=== PATIENT | female | born 1970 | race Caucasian/White ===

== ENCOUNTER 2019-09-21 20:00 | Outpatient (CLI) | payer BC, SELFPAY | END 2019-09-21 20:01 | disposition home or self-care (01) | LOC: SLEEP 09-22 10:31 | PROVIDERS: Family Provider Family Medicine; PCP Family Medicine; Visit Provider Family Medicine | DX: G47.33 Obstructive sleep apnea (adult) (pediatric) (principal) | CPT/HCPCS: 95810; 95811 ==

== ENCOUNTER 2019-12-16 08:47 | Outpatient (CLI) | payer BC, SELFPAY ==
--- NOTE | 2019-12-16 09:09 | MM_ITS ---
WS: [id number] DIAGNOSTIC BILATERAL DIGITAL MAMMOGRAM WITH CAD RIGHT breast ultrasound, limited HISTORY: RIGHT BREAST LUMP 5OCLOCK COMPARISON: 06/26/2017 and 12/26/2013 TECHNIQUE: Bilateral craniocaudad, mediolateral oblique, and mediolateral views are submitted. Spot c ompression RIGHT CC. Computer aided detection utilized. Breast composition: There are scattered areas of fibroglandular density. Stable lymph node in the upp er outer quadrant of the RIGHT breast. Palpable marker is placed near the 6:00 axis of the RIGHT [address] with no underlying abnormality. Both breasts are normal with no suspicious calcifications or mass. RIGHT breast ultrasound. No suspicious mass or shadowing at the site of the palpable abnormality, 5-6 o'clock. Benign lymph no de is again identified at 11:00. MM/[place] [id number] IMPRESSION: BI-RADS: 2-Benign FOLLOW UP: 1 Year Follow-up
--- NOTE | 2019-12-16 09:12 | US_ITS ---
WS: [id number] DIAGNOSTIC BILATERAL DIGITAL MAMMOGRAM WITH CAD RIGHT breast ultrasound, limited HISTORY: RIGHT BREAST LUMP 5OCLOCK COMPARISON: 06/26/2017 and 12/26/2013 TECHNIQUE: Bilateral craniocaudad, mediolateral oblique, and mediolateral views are submitted. Spot c ompression RIGHT CC. Computer aided detection utilized. Breast composition: There are scattered areas of fibroglandular density. Stable lymph node in the upp er outer quadrant of the RIGHT breast. Palpable marker is placed near the 6:00 axis of the RIGHT [address] with no underlying abnormality. Both breasts are normal with no suspicious calcifications or mass. RIGHT breast ultrasound. No suspicious mass or shadowing at the site of the palpable abnormality, 5-6 o'clock. Benign lymph no de is again identified at 11:00. US/US breast RT limited* [id number] IMPRESSION: BI-RADS: 2-Benign FOLLOW UP: 1 Year Follow-up
== END 2019-12-16 08:48 | disposition home or self-care (01) ==
LOC: RADSHAW 08:52
PROVIDERS: PCP Family Medicine; Visit Provider Physician Assistant
DX: N63.14 Unspecified lump in the right breast, lower inner quadrant (principal)
CPT/HCPCS: 76642; 77066

== ENCOUNTER 2020-02-20 13:37 | Outpatient (CLI) | payer BC, SELFPAY ==
--- NOTE | 2020-02-20 13:30 | USCV_ITS ---
Sima Crandall Age: 50 Gender: F : 1970 Exam Date: 02/20/2020 14:12 Ordering Phys: Roberto Honeycutt MD Technologist: Jenae See Exam Location: [facility] – [place] Indication: SOB BP: / HR: 95 Rhythm: Sinus Technical Quality: TDS MEASUREMENTS (Male / Female) Normal Values 2D ECHO LV Diastolic Diameter PLAX 3.2 cm 4.2 - 5.9 / 3.9 - 5.3 cm LV Systolic Diameter PLAX 2.4 cm IVS Diastolic Thickness 0.9 cm 0.6 - 1.0 / 0.6 - 0.9 cm IVS Systolic Thickness 1.3 cm LVPW Diastolic Thickness 1.4 cm 0.6 - 1.0 / 0.6 - 0.9 cm LVPW Systolic Thickness 1.5 cm LVOT Diameter 2.1 cm LV Ejection Fraction 2D Teich 50.7 % LV Ejection Fraction MOD 2C 32.0 % LV Ejection Fraction 2C AL 36.4 % LA Diameter 4.0 cm LA Width 2.4 cm LA Height 3.6 cm RA Width 2.5 cm RA Height 3.9 cm Aorta at Sinotubular Diameter 2.5 cm M-MODE LV Diastolic Diameter MM 3.6 cm 4.2 - 5.9 / 3.9 - 5.3 cm LV Systolic Diameter MM 2.1 cm LV Ejection Fraction MM Teich 75.3 % IVS Diastolic Thickness MM 1.0 cm 0.6 - 1.0 / 0.6 - 0.9 cm IVS Systolic Thickness MM 1.3 cm LVPW Diastolic Thickness MM 1.6 cm 0.6 - 1.0 / 0.6 - 0.9 cm LVPW Systolic Thickness MM 1.7 cm RV Diastolic Diameter MM 1.4 cm Aortic Annulus Diameter 2.9 cm LA Ao Ratio MM 0.8 MV E Point Septal Separation 0.8 cm DOPPLER AV Peak Velocity 187.0 cm/s LVOT Peak Velocity 120.0 cm/s AV Area Cont Eq vti 2.8 cm squared AV Area Cont Eq pk 2.1 cm squared MV Area PHT 4.2 cm squared Mitral E to A Ratio 1.1 MV E' Velocity 10.0 cm/s Mitral E to MV E' Ratio 11.7 Mitral E to LV E' Lateral Ratio 11.9 Mitral E to LV E' Septal Ratio 11.4 TR Peak Velocity 221.7 cm/s TR Peak Gradient 19.7 mmHg TR Mean Velocity 170.2 cm/s TR Mean Gradient 12.8 mmHg TR Velocity Time Integral 61.7 cm TV Peak E Velocity 49.0 cm/s Right Atrial Pressure 3.0 mmHg Pulmonary Artery Systolic Pressu 22.7 mmHg PV Peak Velocity 52.0 cm/s RV Acceleration Time 0.1 s RV Ejection Time 0.3 s RV AcT/ET 0.4 FINDINGS Left Ventricle Normal left ventricular cavity size. Normal left ventricular systolic function. No regional wall motion abnormalities. Left ventricular ejection fraction is estimated at 60 %. Grade I/IV diastolic dysfunction (abnormal relaxation filling pattern), normal to mildly elevated filling pressures. Right Ventricle The right ventricle is normal in size and function. Right Atrium The right atrium is normal in size. Left Atrium The left atrium is normal in size. Mitral Valve Mildly thickened mitral valve. No mitral valve stenosis. Trace mitral valve regurgitation. Aortic Valve Aortic valve sclerosis without stenosis or regurgitation. Tricuspid Valve Structurally normal tricuspid valve without significant stenosis or regurgitation. Pulmonary artery systolic pressure is normal. Pulmonic Valve Structurally normal pulmonic valve without significant stenosis. There is no pulmonic regurgitation. Pericardium Normal pericardium without effusion. Aorta Normal ascending aorta dimension. CONCLUSIONS 1-Normal left ventricular cavity size. Normal left ventricular systolic function. No regional wall motion abnormalities. Left ventricular ejection fraction is estimated at 60 %. Grade I/IV diastolic dysfunction (abnormal relaxation filling pattern), normal to mildly elevated filling pressures. 2-Aortic valve sclerosis without stenosis or regurgitation. 3-Mildly thickened mitral valve. No mitral valve stenosis. Trace mitral valve regurgitation. 4-There is no pericardial effusion. 5-Pulmonary artery systolic pressure is within normal limits. 6-Right atrial pressure is around 5 mm of mercury. 7-There are no prior echocardiogram studies to compare. Harika Linares MD (Electronically Signed) Final Date: 20 February 2020 23:33 S
== END 2020-02-20 13:38 | disposition home or self-care (01) ==
LOC: RAD 13:49
PROVIDERS: PCP Family Medicine; Visit Provider Internal Medicine Critical Care Medicine
DX: R06.02 Shortness of breath (principal); I08.0 Rheumatic disorders of both mitral and aortic valves
CPT/HCPCS: 93306

== ENCOUNTER 2020-04-18 13:08 | Outpatient (CLI) | payer BC, SELFPAY ==
--- NOTE | 2020-04-18 13:30 | CT_ITS ---
WS: [id number] CT CHEST TECHNIQUE: Noncontrast CT of the chest with coronal and sagittal reformatted images. CLINICAL INFORMATION: Shortness of breath COMPARISON: None. DLP: 973.[address] scans at [facility] use at least one of these dose optimization techniques: automat ed exposure control; mA and/or kV adjustment per patient size (includes targeted exams where dose is matched to clinical indication); or iterative reconstruction. FINDINGS: Mild chronic emphysematous changes. No acute pulmonary infiltrates. No focal pneumonia. No pleural fl uid. Normal endobronchial tree. Subsegmental atelectasis right lower lobe. 5 mm fibrotic appearing no dule right costophrenic angle. Normal thyroid gland. No mediastinal or hilar lymphadenopathy. No axillary lymphadenopathy. Cholelith iasis. Adrenal glands are normal. Normal visualized thoracic spine. CT/CT chest wo con [id number] IMPRESSION: 1. Mild chronic emphysematous changes. 2. 5 mm noncalcified nodule right costophrenic angle. Recommend 12 month follo w-up. 3. Subsegmental atelectasis right lower lobe. 4. No mediastinal or hilar lymphadenopathy. 5. Dense cholelithiasis. Recommend follow-up with ultrasound.
== END 2020-04-18 13:09 | disposition home or self-care (01) ==
LOC: CT 13:08
PROVIDERS: PCP Family Medicine; Visit Provider Internal Medicine Critical Care Medicine
DX: R06.02 Shortness of breath (principal); R91.1 Solitary pulmonary nodule; J98.11 Atelectasis; K80.20 Calculus of gallbladder without cholecystitis without obstruction
CPT/HCPCS: 71250

== ENCOUNTER 2021-01-06 15:30 | Emergency (ER) | payer BC, SELFPAY ==
[2021-01-06 16:03] VITALS: BP 145/75; PULSE 81; RESP 15; TEMP 36.8; O2SAT 94; BMI 42.0
--- NOTE | 2021-01-06 16:42 | ED_ITS ---
Documented by User: DAWIT Dozier 01/06/21 16:52 HPI - Extremity Injury (Lower) General: Chief Complaint: Wound/Laceration Stated Complaint: left foot pain Time Seen by Provider: 01/06/21 16:27 Source: patient Mode of arrival: wheelchair Limitations: no limitations History of Present Illness: HPI Narrative: Patient is a 50-year-old female who presents to ED today with complaints of a laceration to her left foot that she sustained after catching it on a lawnmower hinge. Last tetanus is unknown. MD complaint: foot injury Onset (ago): minute(s) Injury: Left: foot Type of Injury: laceration Place: home Severity: severe Relieving factors: nothing Exacerbating factors: nothing Associated symptoms: Reports inability to bear weight Other symptoms: none Review of Systems Musc: Reports: extremity pain (L foot) Skin/Breast: Reports: other (laceration to L foot) Neuro: Denies: numbness in extremities or sensory changes PFS ED PFSH: Medical History (Updated 01/06/21 @ 18:14 by DAVIS Keys) Chronic obstructive pulmonary disease Depression JANET (obstructive sleep apnea) Post-nasal drip Surgical History Hx of section S/P endometrial ablation Family History Mother Kidney disease Social History Smoking and tobacco status: former smoker Quit status (tobacco): has quit using tobacco Year quit tobacco: 2019 - PPD x 30 Years Alcohol intake: current Alcohol intake frequency: few times a week Lives independently: Yes Household members: spouse Marital status: Current occupational status: unemployed History of recent travel: No Current gender identity: Female Physical Exam Const: COMMON NORMALS: patient oriented x3, no limitations and alert GENERAL APPEARANCE: cooperative and in distress (appears uncomfortable secondary to pain) NUTRITIONAL APPEARANCE: obese Extremity: LEFT LOWER EXTREMITY: Yes foot & digits OTHER: pt has very large extensive laceration to the L great toe; laceration involving the lateral edge of her nail and extending laterally and then around toe inferiorly to the plantar aspect Neuro: COMMON NORMALS: patient oriented x3 SENSORIUM/ORIENTATION: Yes alert Skin: NARRATIVE SKIN EXAM: see extremity assessment for pertinent skin findi ngs Course Vital Signs: Vital signs: Vital Signs Temperature 98.2 F 01/06/21 16:03 Pulse Rate 87 01/06/21 17:05 Respiratory Rate 18 01/06/21 17:05 Blood Pressure 135/73 01/06/21 17:05 Pulse Oximetry 94 01/06/21 17:05 Discharge Plan Discharge Patient Disposition: Home Clinical Impression: Laceration Fracture of great toe, left, open Qualifiers: Encounter type: initial encounter Phalanx: unspecified phalanx Fracture alignment: nondisplaced Qualified Code(s): S92.405B - Nondisplaced unspecified fracture of left great toe, initial encounter for open fracture Condition: Stable Prescriptions: New cephalexin 500 mg capsule 500 mg PO TID 10 Days Qty: 30 RF: 0 hydrocodone-acetaminophen 5-325 mg tablet 1 tab PO Q6H PRN (Reason: pain (scale score 7-10)) Qty: 14 RF: 0 No Action Zyrtec 10 mg capsule 10 mg PO DAILY RF: 0 citalopram 20 mg tablet 20 mg PO DAILY RF: 0 albuterol sulfate 90 mcg/actuation HFA aerosol inhaler 2 puff INHALATION Q6H PRNRF: 0 furosemide [Lasix] 20 mg tablet 20 mg PO DAILY 30 Days Qty: 60 RF: 4 fluticasone propionate 50 mcg/actuation spray,suspension See Rx Instructions .ROUTE .COMPLEX Qty: 48 RF: 3 Trelegy Ellipta 100-62.5-25 mcg blister with device 1 inh INHALATION Q24H 30 Days Qty: 60 RF: 6 Discharge Orders: Discharge ED (Routine); Ordered 01/06/21 Ordered By: Ayden Hill Referrals: Steven Bunch MD [Primary Care Provider] - Discharge Diet: Usual diet Discharge Activity: Limit activity as instructed Patient Instructions: Suture Care (ED), Toe Fracture (ED), Opioid Safety Activity Restrictions/Additional Instructions: Keep wound clean and dry. Follow-up with orthopedics office in 3 to 4 days for recheck. Return to the ER for high fever or uncontrolled pain. Drink plenty of water with medications. Light activity. Wear postop shoe when up and ambulating for protection of fracture and laceration. Sign Out Sign Out Data: Patient Sign Out occurred on 01/06/21 at 17:06. Patient's care was discussed, and care was transferred from to Ayden Hill. Coding Level of Care Code ED Assembler [employer] Spider for Chg Fwd Exam Expanded Problem Focused Documented by User: DAVIS Keys 01/06/21 18:19 HPI - Extremity Injury (Lower) General: Chief Complaint: Wound/Laceration Stated Complaint: left foot pain Time Seen by Provider: 01/06/21 16:27 [facility] ED PFSH: Medical History (Updated 01/06/21 @ 18:14 by DAVIS Keys) Chronic obstructive pulmonary disease Depression JANET (obstructive sleep apnea) Post-nasal drip Surgical History Hx of section S/P endometrial ablation Family History Mother Kidney disease Social History Smoking and tobacco status: former smoker Quit status (tobacco): has quit using tobacco Year quit tobacco: 2019 - PPD x 30 Years Alcohol intake: current Alcohol intake frequency: few times a week Lives independently: Yes Household members: spouse Marital status: Current occupational status: unemployed History of recent travel: No Current gender identity: Female Procedures Laceration Laceration 1: Site: other (Great toe left foot) Side (If applicable): left Size (cm): 7 Description: irregular Local Anesthetic: lidocaine 1% Amount of anesthesia used (mL): 15 Pre-repair: wound explored and irrigated extensively Skin layer closed with: nylon Size (cm): 3-0 Number of sutures: 11 Course ED course: 1704, patient is here for a laceration to the foot, will await x- ray. I received patient from Cynthia Knott PA-C. [id number], talk with Dr. Santo about patient's injury there was a noticeable fracture in the distal phalanx and the proximal phalanx of the great toe. He recommended washout of the laceration and loose closure. Patient should then follow-up with orthopedics office in 3 to 4 days. Vital Signs: Vital signs: Vital Signs Temperature 98.2 F 01/06/21 16:03 Pulse Rate 87 01/06/21 17:05 Respiratory Rate 18 01/06/21 17:05 Blood Pressure 135/73 01/06/21 17:05 Pulse Oximetry 94 01/06/21 17:05 MDM - Extremity Injury (Lower) MDM Narrative: Medical decision making narrative: Patient came in for injury to the great left toe. On exam patient had a significant laceration to the great left toe with pain and tenderness. Patient was medicated with morphine, ondansetron, and Ancef. X-ray confirmed a fracture of the distal phalanx and the proximal phalanx of the great toe. Dr. Santo was consulted he recommended irrigation of wound and loose closure and follow-up with orthopedics in 3 days. Wound was closed with 11 sutures, patient was continued on hydrocodone and cephalexin for pain. Patient reported understanding of care plan and need for follow-up or return to the ER. Differential Diagnosis: Extremity Injury, Lower Differential Diagnosis: Likely fracture of toe Discharge Plan Discharge Patient Disposition: Home Clinical Impression: Laceration Fracture of great toe, left, open Qualifiers: Encounter type: initial encounter Phalanx: unspecified phalanx Fracture alignment: nondisplaced Qualified Code(s): S92.405B - Nondisplaced unspecified fracture of left great toe, initial encounter for open fracture Condition: Stable Prescriptions: New cephalexin 500 mg capsule 500 mg PO TID 10 Days Qty: 30 RF: 0 hydrocodone-acetaminophen 5-325 mg tablet 1 tab PO Q6H PRN (Reason: pain (scale score 7-10)) Qty: 14 RF: 0 No Action Zyrtec 10 mg capsule 10 mg PO DAILY RF: 0 citalopram 20 mg tablet 20 mg PO DAILY RF: 0 albuterol sulfate 90 mcg/actuation HFA aerosol inhaler 2 puff INHALATION Q6H PRNRF: 0 furosemide [Lasix] 20 mg tablet 20 mg PO DAILY 30 Days Qty: 60 RF: 4 fluticasone propionate 50 mcg/actuation spray,suspension See Rx Instructions .ROUTE .COMPLEX Qty: 48 RF: 3 Trelegy Ellipta 100-62.5-25 mcg blister with device 1 inh INHALATION Q24H 30 Days Qty: 60 RF: 6 Discharge Orders: Discharge ED (Routine); Ordered 01/06/21 Ordered By: Ayden Hill Referrals: Steven Bunch MD [Primary Care Provider] - Discharge Diet: Usual diet Discharge Activity: Limit activity as instructed Patient Instructions: Suture Care (ED), Toe Fracture (ED), Opioid Safety Activity Restrictions/Additional Instructions: Keep wound clean and dry. Follow-up with orthopedics office in 3 to 4 days for recheck. Return to the ER for high fever or uncontrolled pain. Drink plenty of water with medications. Light activity. Wear postop shoe when up and ambulating for protection of fracture and laceration. Sign Out Sign Out Data: Patient Sign Out occurred on 01/06/21 at 17:06. Patient's care was discussed, and care was transferred from to Ayden Hill. Coding Level of Care Code ED Assembler [employer] Spider for Elle Fwd Exam Expanded Problem Focused
--- NOTE | 2021-01-06 16:42 | XRR_ITS ---
PROCEDURE INFORMATION: Exam: XR Left Toe(s) Exam date and time: 01/06/2021 4:42 PM Age: 50 years old Clinical indication: Injury or trauma; Other: Cut toe with lawnmower; Laceration; Toes; Left first toe; Foreign body involvement not specified; Additional info: Trauma; Great toe TECHNIQUE: Imaging protocol: XR Left toes. Views: Minimum 2 views. COMPARISON: No relevant prior studies available. FINDINGS: Bones/joints: There is a comminuted fracture of the 1st digit distal phalanx with free fracture fragments. There is a vertical oblique fracture through the distal medial aspect of the 1st digit proximal phalanx extending to the interphalangeal joint. Soft tissues: Edema and/or hematoma is present in the soft tissues adjacent to the fracture sites. XR/XR toe LT min 2V [id number] IMPRESSION: There are fractures through the proximal and distal 1st digit phalanges as described above.
[2021-01-06 16:59] VITALS: RESP 20
[2021-01-06] MEDS: morphine 4 mg/mL SDV 1 mL IVP (16:59)
[2021-01-06] MEDS: ondansetron 2 mg/ML SDV 2 mL 4 MG IVP (17:03)
[2021-01-06 17:05] VITALS: BP 135/73; PULSE 87; RESP 18; O2SAT 94
[2021-01-06] MEDS: tetanus-diphtheria tox (adult) 0.5 mL SDV IM (17:37)
[2021-01-06] MEDS: ceFAZolin 1,000 MG in sodium chloride 0.9% (plus) 50 ML 100 MG IV (17:51)
[2021-01-06] MEDS: lidocaine 1% INJ 20 mL INJECTION (17:52)
--- NOTE | 2021-01-06 18:17 | PC.NURSE ---
area was irrigated per Provider and he applied a 2x2 I reinforced with 1 kerlix and secured with tape. post op shoe is applied
[2021-01-06 18:28] VITALS: BP 111/7; PULSE 92; RESP 18; O2SAT 96
--- NOTE | 2021-01-07 08:39 | DCPLANNER ---
enterprise project manager had message to schedule a follow up appointment for patient with ortho. enterprise project manager called the ortho clinic, spoke with Margo, gave clinic patients information. enterprise project manager was told that patients information would be printed and reviewed. Clinic will call patient with appointment information.
--- NOTE | 2021-01-08 14:15 | DCPLANNER ---
Patient has a follow up appointment scheduled for Thursday, January 09, 2021 at 1:[address] Santo at [facility]. Clinic will call patient with appointment information.
--- NOTE | 2021-01-30 07:40 | DCPLANNER ---
Patient had a follow up appointment scheduled with Dr. Santo at ortho - patient did attend appointment.
== END 2021-01-06 18:31 | disposition home or self-care (01) ==
PROVIDERS: Emergency Provider Nurse Practitioner Family; PCP Family Medicine
DX: S92.405B Nondisplaced unspecified fracture of left great toe, initial encounter for open fracture (principal); J44.9 Chronic obstructive pulmonary disease, unspecified; Z87.891 Personal history of nicotine dependence; W22.8XXA Striking against or struck by other objects, initial encounter; Z23 Encounter for immunization
CPT/HCPCS: 73660; 90471; 90714; 96365; 96375; 99284; J0690; J2270; J2405

== ENCOUNTER → 2021-02-05 10:03 | Outpatient (BNVA) | payer BC, SELFPAY | PROVIDERS: PCP Family Medicine; Visit Provider Orthopaedic Surgery | DX: S92.412D Displaced fracture of proximal phalanx of left great toe, subsequent encounter for fracture with routine healing; W31.89XD Contact with other specified machinery, subsequent encounter | CPT/HCPCS: 73660 ==

== ENCOUNTER 2021-02-25 10:26 | Outpatient (CLI) | payer BC, SELFPAY ==
--- NOTE | 2021-02-25 11:00 | CT_ITS ---
WS: [id number] CT scan of the chest without IV contrast, additional two-dimensional coronal and sagittal reconstruct ion was performed. 02/25/2021 Clinical Data: Pulmonary nodule Comparison: CT chest, 04/18/2020. DLP: 1044.[address] scans at [facility] use at least one of these dose optimization techniques: automat ed exposure control; mA and/or kV adjustment per patient size (includes targeted exams where dose is matched to clinical indication); or iterative reconstruction. Findings: The previous described right lower lobe nodule situated between the pleura and the right lobe of the liver is not present. No nodules, masses or effusions are seen. No pneumonia or pneumothorax is seen. The heart size is nor mal with no pericardial effusion. The pulmonary arterial system and thoracic aorta demonstrate no abn ormalities or dilatations. The trachea bifurcates normally into the bronchi. There is no axillary or significant mediastinal adenopathy. The upper abdomen demonstrates the numerous gallstones. CT/CT chest wo con [id number] Impression: 1. Right lower lobe nodule no longer present and no CT chest follow-up recommen ded. 2. Cholelithiasis.
== END 2021-02-25 10:27 | disposition home or self-care (01) ==
PROVIDERS: PCP Family Medicine; Visit Provider Internal Medicine Critical Care Medicine
DX: R91.1 Solitary pulmonary nodule (principal); K80.20 Calculus of gallbladder without cholecystitis without obstruction
CPT/HCPCS: 71250

== ENCOUNTER 2021-12-18 10:06 | Emergency (ER) | payer OTHER, MEDICAID, SELFPAY ==
[2021-12-18 10:18] VITALS: BP 138/81; PULSE 99; RESP 17; TEMP 36.2; O2SAT 93; BMI 48.8
--- NOTE | 2021-12-18 10:48 | CT_ITS ---
WS: [id number] CT HEAD NONCONTRAST HISTORY: dizziness TECHNIQUE: Contiguous axial imaging performed through the brain in 2.5 mm imaging. Bone and soft tiss ue windows. Sagittal and coronal reformats reviewed. All CT scans at [facility] use at least one of these dose optimization techniques: automated exposure control; mA and/or kV adjustment per pa tient size (includes targeted exams where dose is matched to clinical indication); or iterative recon struction. DLP: 914.05 mGy.cm Study is compromised by motion artifact. There is significant artifact through the brain. COMPARISON: None available. No acute intracranial hemorrhage, midline shift or mass effect. No atrophy or prior infarcts or herniation. There is a very slight narrowing of the foramen magnum an d ectopia of the cerebellar tonsils. No hydrocephalus. Ventricles: Normal size with no hydrocephalus. Paranasal sinuses: As visualized are clear. Mastoid air cells: Well pneumatized. Calvarium and scalp: Skull is intact with no soft tissue edema or swelling. CT/CT head wo con* [id number] IMPRESSION: 1. Quality the study is degraded by motion artifact. 2. No acute hemorrhage or mass effect. 3. 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 No ventricular dilatation.
--- NOTE | 2021-12-18 10:49 | ED_ITS ---
HPI - Dizziness General: Chief Complaint: General Medical Stated Complaint: Dizzy, N/V, Blured vision Time Seen by Provider: 12/18/21 10:23 Source: patient Mode of arrival: wheelchair Limitations: no limitations History of Present Illness: HPI Narrative: Patient is a 51-year-old female presents to ED today with a complaint of dizziness over the past 4 days. Patient states dizziness began gradually on Thursday and she described it as mild. She states over the past few days it has been intermittent but over the past day or so it has been more constant. She states this morning when she turned over in bed she immediately became very dizzy. She states dizziness seems to be worse with positional changes and movement. She states she is able to ambulate with assistance. She states dizziness seems to improve by keeping her head still. She reports when she gets dizzy she will have blurry vision but as long as she is staying still her vision is normal. She does not complain of any dysarthria, dysphagia, numbness tingling or weakness to face or extremities. She is not having any chest pain, shortness of breath, palpitations. MD elicited complaint: dizziness Onset (ago): day(s) Timing: gradual onset Description: room spinning , lightheadedness, off-balance and difficulty walking History of similar symptoms: No Exacerbating factors: movement/ambulation, change in body position and keeping eyes open Relieving factors: remaining still and keeping eyes closed Associated symptoms: Reports no associated symptoms and nausea (this AM); Denies chest pain, chills, headache(s), malaise, nasal congestion, palpitations, syncope or vomiting Associated neuro symptoms: Reports no associated symptoms; Deny confusion or numbness in extremities Review of Systems Const: Denies: fever(s), chills, body aches, fatigue or malaise Eyes: Reports: blurry vision (blurry with dizziness; improves by keeping head still ); Denies: blind spots, photophobia, eye discomfort, eye discharge, floaters or seeing flashes ENMT: Denies: throat pain, odynophagia, nasal discharge or nasal congestion Card: Denies: chest pain, palpitations, irregular heart rhythm, edema, swe lling of feet/ankles, lightheadedness, syncope, pre-syncope or dyspnea on exertion Resp: Denies: dyspnea, productive cough or pain on inspiration GI: Reports: nausea (this AM); Denies: abdominal pain, vomiting, heartburn or diarrhea : Denies: dysuria Musc: Denies: neck pain, back pain, extremity pain or joint pain Skin/Breast: Denies: rash Neuro: Reports: dizziness; Denies: headache(s), numbness in extremities, weakness in extremities, sensory changes, lack of coordination, frequent falls, confusion, behavioral changes, Slurred speech present, difficulty communicating thoughts or seizure-like activity Psych: Denies: anxiety PFSH ED PFSH: Medical History (Updated 12/18/21 @ 13:03 by DWAIT Dozier) Chronic obstructive pulmonary disease Depression JANET (obstructive sleep apnea) Post-nasal drip Surgical History Hx of section S/P endometrial ablation Family History Mother Kidney disease Social History Quit status (tobacco): has quit using tobacco Year quit tobacco: 2018 PPD x 30 Years Smoking risk assessment/counseling performed?: No Alcohol intake: current Alcohol intake frequency: few times a week Counseling given: No Counseling given: No Lives independently: Yes Household members: spouse Marital status: Current occupational status: unemployed History of recent travel: No Current gender identity: Female Physical Exam Const: COMMON NORMALS: no acute distress, patient oriented x3, no limitations and alert GENERAL APPEARANCE: cooperative NUTRITIONAL APPEARANCE: obese ORIENTATION/CONSCIOUSNESS: Yes awake, Yes oriented to person, Yes oriented to place and Yes oriented to time HENMT: COMMON NORMALS: normocephalic and atraumatic HEAD & SCALP: normal to inspection, normocephalic and atraumatic FACE & SINUS: normal facial exam Eye: COMMON NORMALS: Equal, round and reactive pupils present, EOMs intact bi laterally and conjunctivae normal GENERAL EYE: appearance normal, both eyes and all related structures and normal light reflex VISUAL ACUITY: Yes acuity normal VISUAL WATTS: No peripheral vision loss and No central vision loss ALIGNMENT: Yes alignment normal PERIORBITAL: periorbital findings normal EYELID: eyelids normal CONJUNCTIVA: Yes conjunctivae normal PUPIL: Yes Equal, round and reactive pupils present DIRECT OPHTHALMOSCOPY: Yes normal light reflex OTHER: pt has no horizontal or vertical nystagmus noted Neck/C-Spine: COMMON NORMALS: full ROM, no lymphadenopathy and no meningeal signs Resp: COMMON NORMALS: normal respiratory effort and clear to auscultation bilaterally AUSCULTATION: clear to auscultation bilaterally Cardio: COMMON NORMALS: regular rate and regular rhythm RATE: regular rate RHYTHM: regular rhythm Extremity: COMMON NORMALS: normal to inspection Neuro: SONU COMA SCALE: document GCS findings [place] coma scale eye openin g: Spontaneous Sonu coma scale verbal response: Orientated [place] coma scale motor response: Obey commands Sonu coma scale total score: 15 COMMON NORMALS: patient oriented x3, CN's II-XII intact bilaterally, moves all extremities and no sensory deficits noted SENSORIUM/ORIENTATION: Yes alert, Yes oriented to person, Yes oriented to place and Yes oriented to time MENINGEAL SIGNS: Yes no meningeal signs MOTOR EXAM: 5/5 motor strength present throughout Skin: COMMON NORMALS: no rashes or lesions noted GENERAL SKIN EXAM: no rashes or lesions noted Course Vital Signs: Vital signs: Vital Signs Temperature 97.2 F L 12/18/21 10:18 Pulse Rate 100 12/18/21 12:17 Respiratory Rate 16 12/18/21 12:17 Blood Pressure 182/109 12/18/21 12:17 Pulse Oximetry 96 12/18/21 12:17 [facility] - Dizziness Medical Decision Making Patient states her dizziness has improved after IV fluids, Ativan, and PO Meclizine. RN states patient was able to get up and ambulate to the restroom without assistance. She has no other symptoms such as diplopia, dysarthria, dysphagia, headache, vomiting, clumsiness/incoordination or lateralizing weakness to suggest central cause. At this time we will treat with Ativan and Meclizine at home and give instructions for Carlos Manuel serge and have her follow up promptly with her PCP for further evaluation. Lab Data : 12/18/21 10:56 12/18/21 10:[address] 12/18/21 10:48 IMPRESSION: 1. Quality the study is degraded by motion artifact. 2. No acute hemorrhage or mass effect. 3. 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 No ventricular dilatation. Laboratory Results WBC 10.7 10^3/uL (4.0-10.0) H 12/18/21 10:56 RBC 5.34 10^6/uL (4.1-5.3) H 12/18/21 10:56 Hgb 16.1 g/dL (11.5-15.3) H 12/18/21 10:56 Hct 49.0 % (37.0-47.0) H 12/18/21 10:56 MCV 91.8 fl (81-99) 12/18/21 10:56 MCH 30.1 pg (28.0-34.0) 12/18/21 10:56 MCHC 32.9 g/dL (30.0-36.0) 12/18/21 10:56 RDW 13.4 % (12.1-15.1) 12/18/21 10:56 Plt Count 358 10^3/cmm (130-400) 12/18/21 10:56 MPV 9.8 fL (7.4-10.4) 12/18/21 10:56 Neut % (Auto) 68.8 % 12/18/21 10:56 Lymph % (Auto) 23.5 % 12/18/21 10:56 Harding % (Auto) 5.0 % 12/18/21 10:56 Eos % (Auto) 1.9 % 12/18/21 10:56 Baso % (Auto) 0.5 % 12/18/21 10:56 Neut # (Auto) 7.35 10^3/uL (1.8-7.7) 12/18/21 10:56 Lymph # (Auto) 2.5 10^3/uL (0.8-4.8) 12/18/21 10:56 Harding # (Auto) 0.5 10^3/uL (0.2-0.9) 12/18/21 10:56 Eos # (Auto) 0.2 10^3/uL (0.0-0.8) 12/18/21 10:56 Baso # (Auto) 0.1 10^3/uL (0.0-0.1) 12/18/21 10:56 Nucleated RBC % (auto) 0 % 12/18/21 10:56 Nucleated RBCs # 0.0 /100WBC 12/18/21 10:56 Sodium 141 mmol/L (136-145) 12/18/21 10:56 Potassium 4.6 mmol/L (3.5-5.1) 12/18/21 10:56 Chloride 105 mmol/L (98-107) 12/18/21 10:56 Carbon Dioxide 27 mmol/L (22-29) 12/18/21 10:56 Anion Gap 13.6 (5-19) 12/18/21 10:56 BUN 11 mg/dL (6-20) 12/18/21 10:56 Creatinine 0.7 mg/dL (0.5-0.9) 12/18/21 10:56 GFR Calculation 88.6 mL/min (90-130) L 12/18/21 10:56 Glucose 95 mg/dL (65-115) 12/18/21 10:56 Calculated Osmolality 291 mOsm/kg (285-295) 12/18/21 10:56 Calcium 9.5 mg/dL (8.5-10.5) 12/18/21 10:56 Total Bilirubin 0.3 mg/dL (0.15-1.2) 12/18/21 10:56 AST 20 U/L (0-32) 12/18/21 10:56 ALT 19 U/L (0-33) 12/18/21 10:56 Alkaline Phosphatase 82 IU/L (35-105) 12/18/21 10:56 Total Protein 6.8 g/dL (6.6-8.7) 12/18/21 10:56 Albumin 4.2 g/dL (3.5-5.2) 12/18/21 10:56 Globulin 2.6 g/dL (1.3-4.6) 12/18/21 10:56 Discharge Plan Discharge Patient Disposition: Home Clinical Impression: Dizziness Condition: Stable Prescriptions: New Medi-Meclizine 25 mg tablet 50 mg PO TID PRN (Reason: dizziness) Qty: 20 0RF lorazepam 0.5 mg tablet 0.5 mg PO TID PRN (Reason: dizziness or vertigo) Qty: 14 0RF No Action Zyrtec 10 mg capsule 10 mg PO DAILY 0RF azithromycin 500 mg tablet 500 mg PO .COMPLEX 90 Days Qty: 45 0RF Rx Instructions: 500 mg PO Thursday; citalopram 20 mg tablet 20 mg PO DAILY 0RF albuterol sulfate 90 mcg/actuation HFA aerosol inhaler 2 puff INHALATION Q6H PRN0RF montelukast [Singulair] 10 mg tablet 10 mg PO DAILY 0RF fluticasone propionate 50 mcg/actuation spray,suspension See Rx Instructions .ROUTE .COMPLEX Qty: 48 3RF Dose Instruction: SPRAY 1 SPRAY INTO EACH NOSTRIL ONCE DAILY Rx Instructions: SPRAY 1 SPRAY INTO EACH NOSTRIL ONCE DAILY furosemide [Lasix] 20 mg tablet 20 mg PO DAILY 30 Days Qty: 60 4RF levofloxacin 750 mg tablet 750 mg PO DAILY 5 Days Qty: 5 0RF Trelegy Ellipta 100-62.5-25 mcg blister with device 1 inh INHALATION Q24H 30 Days Qty: 60 5RF Discharge Orders: Discharge ED (Routine); Ordered 12/18/21 Ordered By: Cynthia Knott Referrals: Steven Bunch MD [Primary Care Provider] - Patient Instructions: Vertigo (DC), Benign Paroxysmal Positional Vertigo (DC), Dizziness (ED) Coding Level of Care Code ED [employer] for Elle Archer
[2021-12-18] MEDS: meclizine 25 mg tablet 50 MG PO (10:53)
[2021-12-18] MEDS: sodium chloride 0.9% 1,000 ML 999 ML IV (10:59)
[2021-12-18] MEDS: LORazepam 2 mg/mL INJ 1 mL 0.5 MG IVP (11:02)
[2021-12-18 11:05] LABS: Basophils # 0.1 10^3/uL (0.0-0.1); Basophils % 0.5 %; Eosinophils # 0.2 10^3/uL (0.0-0.8); Eosinophils % 1.9 %; Hemoglobin 16.1 g/dL (11.5-15.3); Lymphocytes # 2.5 10^3/uL (0.8-4.8); Lymphocytes % 23.5 %; Mean Corpuscular HGB Conc 32.9 g/dL (30.0-36.0); Mean Corpuscular Hemoglobin 30.1 pg (28.0-34.0); Mean Corpuscular Volume 91.8 fl (81-99); Mean Platelet Volume 9.8 fL (7.4-10.4); Monocytes # 0.5 10^3/uL (0.2-0.9); Neutrophils # 7.35 10^3/uL (1.8-7.7); Neutrophils % 68.8 %; Nucleated Red Blood Cells % 0 %; Platelet Count 358 10^3/cmm (130-400); Red Blood Count 5.34 10^6/uL (4.1-5.3); Red Cell Distribution Width 13.4 % (12.1-15.1); White Blood Count 10.7 10^3/uL (4.0-10.0)
[2021-12-18 11:22] LABS: Alanine Aminotransferase 19 U/L (0-33); Albumin Level 4.2 g/dL (3.5-5.2); Alkaline Phosphatase 82 IU/L (35-105); Anion Gap 13.6 (5-19); Aspartate Amino Transferase 20 U/L (0-32); Blood Urea Nitrogen 11 mg/dL (6-20); Calcium 9.5 mg/dL (8.5-10.5); Carbon Dioxide 27 mmol/L (22-29); Chloride 105 mmol/L (98-107); Globulin 2.6 g/dL (1.3-4.6); Glomerular Filtration Rate 88.6 mL/min (90-130); Glucose 95 mg/dL (65-115); Osmolality Calculated 291 mOsm/kg (285-295); Potassium 4.6 mmol/L (3.5-5.1); Sodium 141 mmol/L (136-145); Total Bilirubin 0.3 mg/dL (0.15-1.2); Total Protein 6.8 g/dL (6.6-8.7)
[2021-12-18 12:17] VITALS: BP 182/109; PULSE 100; RESP 16; O2SAT 96
--- NOTE | 2021-12-18 12:17 | PC.NURSE ---
Pt able to ambulate with standby assist, slight gait disturbance initially while getting up from bed, but improves when walking. Pt reports dizziness has improved from this morning.
[2021-12-18 13:27] VITALS: BP 131/88; PULSE 91; RESP 16; O2SAT 96
== END 2021-12-18 13:30 | disposition home or self-care (01) ==
PROVIDERS: Emergency Provider Physician Assistant; PCP Family Medicine
DX: R42 Dizziness and giddiness (principal)
CPT/HCPCS: 70450; 80053; 85025; 96361; 96374; 99284; J2060; J7030; J8597

== ENCOUNTER 2022-02-14 10:48 | Outpatient (CLI) | payer OTHER, MEDICAID, SELFPAY ==
--- NOTE | 2022-02-14 11:15 | MM_ITS ---
WS: [id number] BILATERAL SCREENING DIGITAL BREAST TOMOSYNTHESIS MAMMOGRAM WITH CAD HISTORY: SCREENING COMPARISON: 12/16/2019 and 06/26/2017 Bilateral CC and MLO views with tomosynthesis and synthetic mammography submitted. Computer aided det ection analyzed. Breast composition: There are scattered areas of fibroglandular density. No suspicious masses, microc alcifications or architectural distortion. Benign RIGHT axillary tail lymph node. MM/[place] [id number] IMPRESSION: BI-RADS: 2-Benign FOLLOW UP: 1 Year Follow-up
== END 2022-02-14 10:49 | disposition home or self-care (01) ==
PROVIDERS: PCP Family Medicine; Visit Provider Family Medicine
DX: Z12.31 Encounter for screening mammogram for malignant neoplasm of breast (principal)
CPT/HCPCS: 77063; 77067

== ENCOUNTER 2022-02-26 09:31 | Outpatient (CLI) | payer OTHER, MEDICAID, SELFPAY ==
--- NOTE | 2022-02-26 09:40 | CT_ITS ---
WS: [id number] LDCT LUNG CANCER SCREENING TECHNIQUE: Noncontrast CT of the chest with coronal and sagittal reformatted images. CLINICAL INFORMATION: Lung cancer screening COMPARISON: CT chest February 25, 2021 DLP: 74.89 mGy.cm DIvol: Mean CTDIvol: 1.60 (mGy) All CT scans at [facility] use at least one of these dose optimization techniques: automat ed exposure control; mA and/or kV adjustment per patient size (includes targeted exams where dose is matched to clinical indication); or iterative reconstruction. FINDINGS: No suspicious pulmonary parenchymal opacities today. No acute pulmonary infiltrates. Tiny esophageal hiatal hernia. Normal caliber thoracic aorta. No mediastinal or hilar lymphadenopathy. No axillary ly mphadenopathy. CT/CT lung screening [id number] IMPRESSION: LUNG-RADS: 1-Negative FOLLOW UP: 12 Month: Continue annual screening with LDCT
== END 2022-02-26 09:32 | disposition home or self-care (01) ==
LOC: RAD 09:32
PROVIDERS: PCP Family Medicine; Visit Provider Internal Medicine Critical Care Medicine
DX: Z12.2 Encounter for screening for malignant neoplasm of respiratory organs (principal); Z87.891 Personal history of nicotine dependence
CPT/HCPCS: 71271

== ENCOUNTER 2022-05-21 09:11 | Outpatient (CLI) | payer OTHER, MEDICAID, SELFPAY ==
--- NOTE | 2022-05-21 09:35 | XR_ITS ---
WS: [id number] Exam: XR chest 2V* [id number] Date/Time of Exam: 05/21/2022 9:35 AM Reason For Exam: suspected infection Comparison 07/08/2019. The lungs are clear and hyperinflated.. Normal cardiomediastinal silhouette. Regional bony elements a ppear normal. No pleural effusions. XR/XR chest 2V* [id number] IMPRESSION: 1. No acute cardiopulmonary finding. Pulmonary hyperinflation.
== END 2022-05-21 09:12 | disposition home or self-care (01) ==
LOC: RAD 09:28
PROVIDERS: PCP Family Medicine; Visit Provider Internal Medicine Pulmonary Disease
DX: J44.9 Chronic obstructive pulmonary disease, unspecified (principal); E66.01 Morbid (severe) obesity due to excess calories; G47.33 Obstructive sleep apnea (adult) (pediatric)
CPT/HCPCS: 71046

== ENCOUNTER 2022-05-28 08:55 | Outpatient (CLI) | payer OTHER, MEDICAID, SELFPAY | END 2022-05-28 08:56 | disposition home or self-care (01) | LOC: RT 08:56 | PROVIDERS: PCP Family Medicine; Visit Provider Internal Medicine Pulmonary Disease | DX: R06.02 Shortness of breath (principal); R91.1 Solitary pulmonary nodule | CPT/HCPCS: 94060; 94618; 94726; 94729; J7613 ==

== ENCOUNTER 2022-08-27 06:00 | Outpatient (RCR) | payer OTHER, MEDICAID, SELFPAY ==
[2022-09-11 12:17] VITALS: O2SAT 92; O2SAT 93
== END 2022-09-23 23:59 | disposition home or self-care (01) ==
LOC: PULRHB 06:00
PROVIDERS: PCP Family Medicine; Visit Provider Internal Medicine Pulmonary Disease
DX: J44.9 Chronic obstructive pulmonary disease, unspecified (principal)
CPT/HCPCS: 94626; 94760

== ENCOUNTER 2022-09-24 06:00 | Outpatient (RCR) | payer OTHER, MEDICAID, SELFPAY | END 2022-10-24 23:59 | disposition home or self-care (01) | LOC: PULRHB 06:00 | PROVIDERS: PCP Family Medicine; Visit Provider Internal Medicine Pulmonary Disease | DX: J44.9 Chronic obstructive pulmonary disease, unspecified (principal) | CPT/HCPCS: 94625; 94626 ==

== ENCOUNTER → 2023-03-26 14:20 | Outpatient (BNVA) | payer MEDICARE, SELFPAY | PROVIDERS: PCP Family Medicine; Visit Provider Internal Medicine Pulmonary Disease | DX: J44.9 Chronic obstructive pulmonary disease, unspecified (principal); J30.2 Other seasonal allergic rhinitis; Z87.891 Personal history of nicotine dependence; E66.01 Morbid (severe) obesity due to excess calories; G47.33 Obstructive sleep apnea (adult) (pediatric); R91.1 Solitary pulmonary nodule; Z68.42 Body mass index [BMI] 45.0-49.9, adult | CPT/HCPCS: 99214 ==

== ENCOUNTER 2023-06-01 09:02 | Outpatient (CLI) | payer MEDICARE, SELFPAY ==
--- NOTE | 2023-06-01 09:30 | CT_ITS ---
WS: [email or web address] LDCT LUNG CANCER SCREENING TECHNIQUE: Noncontrast CT of the chest with coronal and sagittal reformatted images. CLINICAL INFORMATION: Cancer Screen COMPARISON: 02/26/2022 DLP: 123.50 mGy.cm DIvol: Mean CTDIvol: 3.00 (mGy) All CT scans at [facility] use at least one of these dose optimization techniques: automat ed exposure control; mA and/or kV adjustment per patient size (includes targeted exams where dose is matched to clinical indication); or iterative reconstruction. FINDINGS: No suspicious pulmonary parenchymal opacities. Lungs are well aerated. Cholelithiasis. Normal caliber thoracic aorta. No mediastinal or hilar lymphadenopathy. No axillary l ymphadenopathy. Mild thoracic curve with endplate Schmorl's nodes. IMPRESSION: Extensive cholelithiasis. This could be further evaluated with ultrasound. CT/CT lung screening [id number] LUNG-RADS: 1S-Negative with Significant Findings FOLLOW UP: 12 Month: Continue annual screening with LDCT
== END 2023-06-01 09:03 | disposition home or self-care (01) ==
LOC: RAD 09:02
PROVIDERS: PCP Family Medicine; Visit Provider Internal Medicine Pulmonary Disease
DX: Z12.2 Encounter for screening for malignant neoplasm of respiratory organs (principal); Z87.891 Personal history of nicotine dependence
CPT/HCPCS: 71271

== ENCOUNTER → 2023-11-26 08:33 | Outpatient (BNVA) | payer MEDICARE, SELFPAY | PROVIDERS: PCP Family Medicine; Visit Provider Internal Medicine Pulmonary Disease | DX: J44.9 Chronic obstructive pulmonary disease, unspecified (principal); E66.01 Morbid (severe) obesity due to excess calories; G47.33 Obstructive sleep apnea (adult) (pediatric); R91.1 Solitary pulmonary nodule; J45.909 Unspecified asthma, uncomplicated; Z68.43 Body mass index [BMI] 50.0-59.9, adult | CPT/HCPCS: 99214 ==

== ENCOUNTER 2024-06-13 12:47 | Outpatient (CLI) | payer MEDICARE, SELFPAY ==
--- NOTE | 2024-06-13 12:50 | CT_ITS ---
WS: [email or web address] LDCT LUNG CANCER SCREENING TECHNIQUE: Noncontrast CT of the chest with coronal and sagittal reformatted images. CLINICAL INFORMATION: HX OF TOBACCO USE COMPARISON: 2022 DLP: 144.71 mGy.cm DIvol: Mean CTDIvol: 3.60 (mGy) All CT scans at [facility] use at least one of these dose optimization techniques: automat ed exposure control; mA and/or kV adjustment per patient size (includes targeted exams where dose is matched to clinical indication); or iterative reconstruction. FINDINGS: No mediastinal or hilar lymphadenopathy. No suspicious pulmonary parenchymal opacities. 3 m m noncalcified nodule RIGHT upper lobe near the lung apex. Additional tiny nodule RIGHT upper lobe po steriorly. No focal pneumonia or pleural fluid. Cholelithiasis. Normal caliber thoracic aorta. No axillary lymphadenopathy. Mild thoracic curve. Smal l esophageal canal hernia. Adrenal glands are normal. CT/CT lung screening [id number] IMPRESSION: Extensive cholelithiasis. Recommend gallbladder ultrasound. LUNG-RADS: 2S-Benign Appearance or Behavior with Significant Findings FOLLOW UP: 12 Month: Continue annual screening with LDCT
== END 2024-06-13 12:48 | disposition home or self-care (01) ==
LOC: RAD 12:48
PROVIDERS: PCP Family Medicine; Visit Provider Family Medicine
DX: Z12.2 Encounter for screening for malignant neoplasm of respiratory organs (principal); Z87.891 Personal history of nicotine dependence; R91.8 Other nonspecific abnormal finding of lung field
CPT/HCPCS: 71271

== ENCOUNTER 2024-06-15 08:03 | Outpatient (CLI) | payer MEDICARE, SELFPAY ==
[2024-06-15] MEDS: albuterol 2.5 mg/3 mL Neb INHALATION (08:18)
== END 2024-06-15 08:04 | disposition home or self-care (01) ==
LOC: RT 08:04
PROVIDERS: PCP Family Medicine; Visit Provider Family Medicine
DX: J44.9 Chronic obstructive pulmonary disease, unspecified (principal); R94.2 Abnormal results of pulmonary function studies
CPT/HCPCS: 94060; 94726; 94729; J7613

== ENCOUNTER → 2025-04-07 09:48 | Outpatient (BNVA) | payer MEDICARE, SELFPAY | PROVIDERS: PCP Family Medicine; Visit Provider Internal Medicine | DX: J44.9 Chronic obstructive pulmonary disease, unspecified (principal); G47.33 Obstructive sleep apnea (adult) (pediatric); Z99.89 Dependence on other enabling machines and devices; R91.1 Solitary pulmonary nodule; T78.40XA Allergy, unspecified, initial encounter; X58.XXXA Exposure to other specified factors, initial encounter; F17.210 Nicotine dependence, cigarettes, uncomplicated | CPT/HCPCS: 36415; 85025; 86003; 99214 ==

== ENCOUNTER → 2025-05-05 10:52 | Outpatient (BNVA) | payer MEDICARE, SELFPAY | PROVIDERS: PCP Family Medicine; Visit Provider Obstetrics & Gynecology | DX: Z01.419 Encounter for gynecological examination (general) (routine) without abnormal findings (principal) | CPT/HCPCS: 87624 ==

== ENCOUNTER 2025-06-15 11:12 | Outpatient (CLI) | payer MEDICARE, SELFPAY ==
--- NOTE | 2025-06-15 11:15 | CT_ITS ---
WS: [id number] LDCT LUNG CANCER SCREENING HISTORY: smoker TECHNIQUE: Axial imaging performed from the apices to 1 cm below the costophrenic angles. Coronal and sagittal reformats are submitted with axial MIP series. All CT scans at use at least one of these dose optimization techniques: automated exposure control; mA and/or kV adjustment per patient size (includes targeted exams where dose is matched to clinical indication); or iterative reconstruction. DLP: 150.50 mGy.cm DIvol: Mean CTDIvol: 3.80 (mGy) COMPARISON: 06/13/2024, 06/01/2023 Diagnostic quality: Satisfactory Lungs: There are a few scattered pulmonary micronodules. No new or enlarging pulmonary nodules. No endobronchial lesions. Heart: Normal size heart with no pericardial effusion.. No pericardial effusion. Other findings: No mediastinal or hilar adenopathy. Normal size aorta. Normal size pulmonary artery. Small hiatal hernia. Cholelithiasis. No adrenal mass. Very slight thickening of the LEFT adrenal gland may be a small benign adenoma developing. Mild thoracic spondylosis. No destructive bone lesions. CT/CT lung screening [id number] IMPRESSION: LUNG-RADS: 2-Benign Appearance or Behavior FOLLOW UP: 12 Month: Continue annual screening with LDCT OTHER FINDINGS (S MODIFIER): None.
--- NOTE | 2025-06-15 11:17 | MM_ITS ---
WS: [id number] BILATERAL SCREENING DIGITAL TOMOSYNTHESIS MAMMOGRAM WITH CAD SCREENING DIGITAL BREAST TOMOSYNTHESIS MAMMOGRAM WITH CAD HISTORY: SCREENING COMPARISON: 02/12/2022, 12/16/2019 Bilateral CC and MLO with tomosynthesis and synthetic mammography submitted. Computer aided detection analyzed. Breast composition: There are scattered areas of fibroglandular density. New high density mass measuring 5 x 4 mm seen best on the LEFT MLO projection at the nipple line. This mass is within the anterior breast and probably just central to the nipple on the CC projection. Stable mass in the upper outer quadrant RIGHT breast is probably a lymph node. MM/MM [facility] tomosynthesis [id number] IMPRESSION: BI-RADS: 0 - Incomplete: Need additional imaging evaluation. FOLLOW UP: Need Additional Imaging LEFT breast: Spot compression views (CC and MLO). True ML. Ultrasound to follow if abnormality persists.
== END 2025-06-15 11:13 | disposition home or self-care (01) ==
LOC: RAD 11:13
PROVIDERS: PCP Family Medicine; Visit Provider Internal Medicine
DX: Z12.31 Encounter for screening mammogram for malignant neoplasm of breast (principal); Z12.2 Encounter for screening for malignant neoplasm of respiratory organs; F17.210 Nicotine dependence, cigarettes, uncomplicated; J44.9 Chronic obstructive pulmonary disease, unspecified; R92.323 Mammographic fibroglandular density, bilateral breasts; N63.42 Unspecified lump in left breast, subareolar; N63.11 Unspecified lump in the right breast, upper outer quadrant; K44.9 Diaphragmatic hernia without obstruction or gangrene; K80.20 Calculus of gallbladder without cholecystitis without obstruction; E27.8 Other specified disorders of adrenal gland; M47.814 Spondylosis without myelopathy or radiculopathy, thoracic region
CPT/HCPCS: 71271; 77063; 77067

== ENCOUNTER → 2025-06-28 13:44 | Outpatient (BNVA) | payer MEDICARE, SELFPAY | PROVIDERS: PCP Family Medicine; Visit Provider Internal Medicine | DX: J44.89 Other specified chronic obstructive pulmonary disease (principal); G47.33 Obstructive sleep apnea (adult) (pediatric); Z99.89 Dependence on other enabling machines and devices; R91.1 Solitary pulmonary nodule; Z87.891 Personal history of nicotine dependence | CPT/HCPCS: 99214; Q3014 ==

== ENCOUNTER 2025-07-11 10:11 | Outpatient (CLI) | payer MEDICARE, SELFPAY ==
--- NOTE | 2025-07-11 10:16 | MM_ITS ---
WS: [email or web address] ADDITIONAL VIEWS LEFT MAMMOGRAM WITH DIGITAL BREAST TOMOSYNTHESIS. LEFT breast ultrasound, limited HISTORY: 02/14/2022, 06/15/2025 COMPARISON: None available. Spot compression views LEFT breast in CC, MLO projections and true ML submitted with digital breast tomosynthesis and SM. Breast composition: There are scattered areas of fibroglandular density. The new mass persists in the anterior LEFT breast with spot compression views. Mass measures 7 x 2 x 4 mm. This is in the anterior breast just posterior to the nipple. No distortion. LEFT breast ultrasound, limited. No mass identified. There is a hyperechoic nodule at 12:00, 7 cm the nipple measuring 0.7 x 0.6 x 0.6 cm. This is probably a small lipoma. This is further away from the nipple than expected by the mammography. No masses are identified. The findings on the recent mammogram may be material within the duct. MM/MM diag [place] tomosynthesis [id number] IMPRESSION: BI-RADS: 3 - Probably Benign. FOLLOW UP: 6 Month Follow-up Recommend diagnostic LEFT mammogram and ultrasound follow-up in 6 months. No co rresponding abnormality seen by ultrasound of the abnormality in the LEFT breas t. This may be mild duct ectasia. Follow-up recommended.
== END 2025-07-11 10:12 | disposition home or self-care (01) ==
LOC: RAD 10:12
PROVIDERS: PCP Family Medicine; Visit Provider Family Medicine
DX: R92.8 Other abnormal and inconclusive findings on diagnostic imaging of breast (principal); N63.12 Unspecified lump in the right breast, upper inner quadrant
CPT/HCPCS: 76642; 77061; 77063